=== PATIENT | male | born 1960 | race Hispanic/Latino ===

== ENCOUNTER 2021-12-20 22:33 | Emergency (ER) | payer MEDICAID ==
[2021-12-20] MEDS ORDERED: ASPIRIN 325 MG TAB PO ONE (22:56)
[2021-12-20 23:21] LABS: Basophils # (Auto) 0.1 K/mm3 (0.0-0.1); Basophils % (Auto) 0.9 % (0.0-1.8); Eosinophils # (Auto) 0.2 K/mm3 (0.0-0.4); Eosinophils % (Auto) 2.2 % (0.0-4.3); Hematocrit 42.7 % (35.5-45.6); Hemoglobin 14.5 gm/dl (11.8-15.2); Lymphocytes # (Auto) 1.5 K/mm3 (1.2-5.4); Lymphocytes % (Auto) 17.8 % (13.4-35.0); Mean Corpuscular HGB Conc 34 % (32-34); Mean Corpuscular Volume 91 fl (84-94); Monocytes # (Auto) 0.7 K/mm3 (0.0-0.8); Monocytes % (Auto) 8.3 % (0.0-7.3); Platelet Count 153 K/mm3 (140-440); Red Blood Count 4.67 M/mm3 (3.65-5.03); Red Cell Distribution Width 14.6 % (13.2-15.2)
--- NOTE | 2021-12-20 23:31 | XRay Report ---
CHEST 2 VIEWS INDICATION / CLINICAL INFORMATION: DAGO. COMPARISON: None available. FINDINGS: SUPPORT DEVICES: None. HEART / MEDIASTINUM: Cardiomegaly. Surgical clips are seen throughout the mediastinum LUNGS / PLEURA: No significant pulmonary or pleural abnormality. No pneumothorax. ADDITIONAL FINDINGS: No significant additional findings. IMPRESSION: 1. Cardiomegaly Signer Name: Noah Stone MD Signed: 12/20/2021 11:26 PM Workstation Name: [id number]
[2021-12-20 23:39] LABS: Albumin 4.4 g/dL (3.9-5); Calcium 9.8 mg/dL (8.4-10.2)
[2021-12-20] MEDS ORDERED: FUROSEMIDE 20 MG/2 ML INJ IV ONE (23:44)
--- NOTE | 2021-12-20 23:45 | Emergency Department Report ---
ED Shortness of Breath HPI - General Chief Complaint: Dyspnea/Respdistress Stated Complaint: SOB Time Seen by Provider: 12/20/21 23:15 Source: patient Mode of arrival: Stretcher Limitations: No Limitations - History of Present Illness Initial Comments: 61-year-old patient presents to the emergency room via EMS complaining of shortness of breath and chest pressure starting on Tuesday night after eating a salty dinner. Patient reports similar symptoms in the past, last time being 6 months ago after eating salty food, and having a CHF exacerbation. Over the last 2 days, patient has been taking aspirin 325 mg and has tripled his Lasix dose, but with no relief of his symptoms. Patient reports orthopnea, dyspnea on exertion, and substernal chest pressure. Patient also reports mild worsening of his bilateral lower extremity swelling, but denies pain. 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 Denies alleviating factors, but does report that when he has had to come to the emergency department, previously with similar symptoms, that IV Lasix makes his symptoms improved. - Related Data Allergies Allergy/AdvReac Type Severity Reaction Status Date / Time azithromycin Allergy Hives Verified 12/20/21 22:55 ED Review of Systems ROS: Stated complaint: SOB Other details as noted in HPI Comment: All other systems reviewed and negative Constitutional: denies: chills, diaphoresis, fever Eyes: denies: eye pain, eye discharge, vision change ENT: denies: ear pain, throat pain Respiratory: shortness of breath, SOB with exertion, SOB at rest. denies: cough, wheezing Cardiovascular: chest pain, dyspnea on exertion, orthopnea, edema, paroxysmal nocturnal dyspnea. denies: palpitations Endocrine: no symptoms reported Gastrointestinal: denies: abdominal pain, nausea, diarrhea Genitourinary: denies: urgency, dysuria Musculoskeletal: joint swelling. denies: back pain, arthralgia, myalgia Skin: denies: rash, lesions Neurological: denies: headache, weakness, paresthesias Psychiatric: denies: anxiety, depression Hematological/Lymphatic: denies: easy bleeding, easy bruising ED Past Medical Hx - Past Medical History Previous Medical History?: Yes Hx Hypertension: Yes Hx Congestive Heart Failure: Yes Hx Diabetes: Yes - Surgical History Past Surgical History?: Yes Hx Open Heart Surgery: Yes - Social History Smoking Status: Never Smoker Substance Use Type: None ED Physical Exam - General Limitations: No Limitations General appearance: alert, in no apparent distress - Head Head exam: Present: atraumatic, normocephalic - Eye Eye exam: Present: normal appearance, PERRL, EOMI - ENT ENT exam: Present: normal exam, mucous membranes moist - Neck Neck exam: Present: normal inspection, full ROM - Respiratory Respiratory exam: Present: normal lung sounds bilaterally, rales (at bases, only). Absent: respiratory distress - Cardiovascular Cardiovascular Exam: Present: regular rate, normal rhythm. Absent: systolic murmur, diastolic murmur, rubs, gallop - GI/Abdominal GI/Abdominal exam: Present: soft, normal bowel sounds. Absent: tenderness, pulsatile mass - Rectal Rectal exam: Present: deferred - Extremities Exam Extremities exam: Present: normal inspection, other (Bilateral lower extremity edema left greater than right). Absent: calf tenderness - Back Exam Back exam: Present: normal inspection - Neurological Exam Neurological exam: Present: alert, oriented X3 - Psychiatric Psychiatric exam: Present: normal affect, normal mood - Skin Skin exam: Present: warm, dry, intact, normal color. Absent: rash ED Course Vital Signs 12/20/21 12/20/21 12/20/21 22:33 23:39 23:52 Temperature 98 F 98.3 F Pulse Rate 82 87 87 Respiratory 20 18 16 Rate Blood Pressure 148/93 Blood Pressure 126/80 133/70 [Left] O2 Sat by Pulse 95 97 Oximetry 12/21/21 12/21/21 01:53 03:36 Temperature Pulse Rate 88 84 Respiratory 18 15 Rate Blood Pressure Blood Pressure 132/77 123/89 [Left] O2 Sat by Pulse 95 95 Oximetry - Reevaluation(s) Reevaluation #1: 12/21/21 00:11 Patient's troponin is slightly elevated and with no past documentation, I will repeat the troponin in 2 hours to see if it is improving. I will also perform a CTA with contrast to rule out PE as a cause for his chest pain and shortness of breath, as his chest x-ray appears within normal limits. Reevaluation #2: 12/21/21 04:18 Patient now reports complete resolution of his symptoms, and is requesting to be discharged home. 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 ED Medical Decision Making - Lab Data Result diagrams: 12/20/21 23:09 12/20/21 23:09 - EKG Data -: EKG Interpreted by Me EKG shows normal: sinus rhythm Rate: normal - EKG Data When compared to previous EKG there are: previous EKG unavailable Interpretation: nonspecific ST-T wave josé luis 12/21/21 00:12 Normal sinus rhythm with multiple PVCs and right bundle branch block. Inverted T waves in the lateral and anterior leads, but no findings concerning for acute injury or infarct - Radiology Data Radiology results: report reviewed cta chest impress: IMPRESSION: 1. No CT evidence for pulmonary embolism. 2. Ground glass opacities with pulmonary opacities and densities in bilateral lungs could represent inflammation, edema, infection, nonspecific. 3. Pulmonary hypertension with cardiomegaly suggested. 4. Cholelithiasis identified. Bilateral renal cysts. Signer Name: Noah Stone MD Critical care attestation.: If time is entered above; I have spent that time in minutes in the direct care of this critically ill patient, excluding procedure time. ED Disposition Clinical Impression: Chest pain CHF (congestive heart failure) Qualifiers: Heart failure type: unspecified Heart failure chronicity: acute on chronic Qualified Code(s): I50.9 - Heart failure, unspecified Disposition: 01 HOME / SELF CARE / HOMELESS Is pt being admited?: No Does the pt Need Aspirin: No Condition: Stable Instructions: Nonspecific Chest Pain, Adult, Heart Failure, Self Care Additional Instructions: Please call your primary care doctor, today, and let him/her know that you were seen in the emergency department. Please take your Lasix twice a day until you are seen by your primary care doctor. Time of Disposition: 04:17
--- NOTE | 2021-12-21 01:17 | Cat Scan Report ---
CTA CHEST WITH CONTRAST INDICATION / CLINICAL INFORMATION: chest pain and shortness of breath, r/o pe. TECHNIQUE: Axial CT images were obtained through the chest after injection of IV contrast. 3 plane RI P and/or 3D reconstructions were produced. All CT scans at this location are performed using CT dose reduction for ALARA by means of automated exposure control. COMPARISON: None available. FINDINGS: The main pulmonary artery is enlarged suggesting portal hypertension. No definite filling defect or e vidence for PTE. The heart is enlarged. Increased interstitial prominence with some groundglass densi ties in bilateral lungs no dominant nodular mass is seen. Cholelithiasis is noted. Bilateral renal cy sts are seen. No dominant mediastinal or hilar adenopathy. IMPRESSION: 1. No CT evidence for pulmonary embolism. 2. Ground glass opacities with pulmonary opacities and densities in bilateral lungs could represent i nflammation, edema, infection, nonspecific. 3. Pulmonary hypertension with cardiomegaly suggested. 4. Cholelithiasis identified. Bilateral renal cysts. Signer Name: Noah Stone MD Signed: 12/21/2021 1:12 AM Workstation Name: [id number]
[2021-12-21] MEDS ORDERED: HYDROcodone/ACETAMINOPHEN 5-325 MG TAB PO ONE (01:32)
[2021-12-21] MEDS ORDERED: FUROSEMIDE 40 MG/4 ML INJ IV ONE (02:43)
[2021-12-21 04:53] VITALS: BP 126/73
--- NOTE | 2021-12-21 09:09 | Electrocardiograph Report ---
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
== END 2021-12-21 04:52 | disposition home or self-care (01) ==
LOC: ED 22:33
DX: R07.9 Chest pain, unspecified (principal); I50.9 Heart failure, unspecified; I10 Essential (primary) hypertension; E11.9 Type 2 diabetes mellitus without complications; Z88.1 Allergy status to other antibiotic agents
CPT/HCPCS: 36415; 71046; 71275; 80053; 80061; 83880; 84484; 85025; 93005; 96374; 96376; 99285; J1940; Q9967

== ENCOUNTER 2022-01-01 15:11 | Emergency (ER) | payer MEDICAID ==
[2022-01-01 16:44] VITALS: BP 129/83
--- NOTE | 2022-01-01 16:47 | Event Note ---
ED Screening Note ED Screening Note: 61-year-old male history of diabetes CHF hypertension presents with headache. Describes posterior headache x6 months. Headache started as a slow progression has progressively gotten worse with dizziness weakness. No fall or injury. General: Nontoxic appearing no acute distress Cardiac: Regular rate, normal heart sounds Respiratory: Normal lung sounds bilaterally no use of pier runner muscles GI/-normal sounds, nontender no guarding Musculoskeletal-normal inspection full range of motion Neuro-alert oriented x4. In the setting of a significantly high volume and record number of patients presenting to the emergency department and the fact that we have a limited space to see patients we have implemented the provider in triage protocol this allows an expedited initial exam of patients that might otherwise have left without being seen or who would wait longer than usual to be seen by provider. I interviewed the patient and performed a limited physical exam. This patient is a pulled from the waiting room to triage room for an initial assessment of adrenal studies and then returned to the waiting room pending results of the studies. The ultimate final evaluation and disposition may be performed by another provider depending on room and provider availability.
--- NOTE | 2022-01-01 17:33 | Cat Scan Report ---
CT HEAD WITHOUT CONTRAST INDICATION / CLINICAL INFORMATION: swann, dizziness, weakness. TECHNIQUE: All CT scans at this location are performed using CT dose reduction for ALARA by means of automated e xposure control. COMPARISON: None available. FINDINGS: HEMORRHAGE: No evidence of intracranial hemorrhage or extra-axial fluid collection. EXTRA-AXIAL SPACES: Bilaterally symmetrical prominence of cortical sulci is observed in the parietal lobes. This reflects presence of disproportionate parietal lobe atrophy. Cortical sulci, sylvian fiss ures and basilar cisterns have an otherwise unremarkable appearance. VENTRICULAR SYSTEM: The third and lateral ventricles are of normal size and configuration. CEREBRAL PARENCHYMA: No areas of abnormal brain parenchymal attenuation are identified. There is no i ndication of recent infarction. MIDLINE SHIFT OR HERNIATION: There is no mass effect. CEREBELLUM / BRAINSTEM: Brainstem and cerebellum have an unremarkable appearance. MIDLINE STRUCTURES:No abnormalities of the pituitary gland or pineal region are identified. INTRACRANIAL VESSELS:No abnormalities are identified on this noncontrast head CT. ORBITS: visualized portions of the orbits have an unremarkable appearance. SOFT TISSUES of HEAD: No significant abnormality. CALVARIUM: Evaluation of bone windows reveals no abnormalities. PARANASAL SINUSES / MASTOID AIR CELLS: Visualized portions of the paranasal sinuses are free from inf lammatory mucosal disease. Mastoid air cells are normally pneumatized. Evaluation of the nasal cavity is remarkable for soft tissue attenuation mass in the anterior right nasal cavity. This measures abo ut 1.8 x 0.9 cm in transverse dimension by 1.7 cm in superior-inferior dimension. This could represen t a polyp. A similar smaller finding is observed in the left nasal cavity lateral to the middle turbi brittany. Correlation with ENT evaluation is advised. ADDITIONAL FINDINGS: None. IMPRESSION: 1. No acute intracranial abnormality. 2. Disproportionate bilateral parietal lobe atrophy 3. Small mass is identified in the anterior nasal cavity on the right. A similar, smaller finding is seen lateral to the middle turbinate on the left. These could represent sinonasal polyps. ENT evaluat ion is advised. Signer Name: Lavelle Echeverria MD Signed: 01/01/2022 5:29 PM Workstation Name: [id number]
== END 2022-01-03 09:45 | disposition left against medical advice (07) ==
LOC: ED 15:11
DX: R51.9 Headache, unspecified (principal); Z53.21 Procedure and treatment not carried out due to patient leaving prior to being seen by health care provider
CPT/HCPCS: 70450

== ENCOUNTER 2022-01-06 18:21 | Emergency (ER) | payer MEDICAID ==
[2022-01-06 18:40] VITALS: BP 138/98
== END 2022-01-06 20:30 | disposition left against medical advice (07) ==
LOC: ED 18:21
DX: R07.89 Other chest pain (principal); Z53.21 Procedure and treatment not carried out due to patient leaving prior to being seen by health care provider